=== PATIENT | male | born 1970 | race Caucasian/White ===

== ENCOUNTER 2022-01-16 05:51 | Observation (INO) | payer OTHER ==
[2022-01-12 09:56] LABS: BASOPHILS % 0.6 % (0.0-1.0); EOSINOPHILS # (AUTO) 0.1 (0.0-0.4); EOSINOPHILS % 1.5 % (0.0-6.0); HEMATOCRIT 45.5 % (38.2-49.6); HEMOGLOBIN 15.6 g/dL (14.0-18.0); LYMPHOCYTES # (AUTO) 1.5 (1.0-3.2); LYMPHOCYTES % 21.7 % (18.0-39.1); MEAN CORPUSCULAR HEMOGLOBIN 31.5 pg (28-32); MEAN CORPUSCULAR HGB CONC 34.3 g/dL (31-35); MEAN CORPUSCULAR VOLUME 91.9 fL (81-99); MONOCYTES # (AUTO) 0.6 (0.2-0.8); MONOCYTES % 8.8 % (4.4-11.3); NEUTROPHILS # (AUTO) 4.6 (2.1-6.9); NEUTROPHILS % 67.1 % (38.7-80.0); PLATELET COUNT 218 x10e3/uL (140-360); RED BLOOD COUNT 4.95 x10e6/uL (4.3-5.7); RED CELL DISTRIBUTION WIDTH 11.6 % (11.7-14.4)
[~2022-01-16] VITALS: Ht 195.6 cm; Wt 88.5 kg
[~2022-01-16 05:51] MED LIST: ADDERALL 30 MG30 MG; TESTOSTERONE IM; TESTOSTERONE5 GM INJ
[2022-01-16] MEDS ORDERED: SODIUM CHLORIDE 0.9% 50ML 100 ML ONE (06:00)
[2022-01-16] MEDS ORDERED: LACTATED RINGER'S 1,000 ML INJ SCH (11:00)
[2022-01-16] MEDS ORDERED: MEPERIDINE HCL 50 MG TAB PO PRN (11:00)
[2022-01-16] MEDS: ONDANSETRON HCL INJ 2MG/ML 2ML 2 MG/ML VIAL ONE ×2 (11:10→11:19)
[2022-01-16] MEDS: FENTANYL CITRATE/PF 100MCG/2 ML INJ ONE ×2 (11:10→11:19)
[2022-01-16 12:12] VITALS: BP 124/78
[2022-01-16 12:13] VITALS: BP 124/78
[2022-01-16 12:18] VITALS: BP 124/78
[2022-01-16] MEDS: ONDANSETRON HCL INJ 2MG/ML 2ML 2 MG/ML VIAL IV PRN ×2 (12:50→20:50)
[2022-01-16] MEDS ORDERED: POVIDONE IODINE 0.05% 0.05 % ML PO ONE (12:54)
[2022-01-16] MEDS ORDERED: KETOROLAC TROMETHAMINE 30 MG/ML VIAL ONE (12:54)
[2022-01-16] MEDS ORDERED: DEXAMETHASONE SOD PHOS INJ 4 MG/ML SDV ONE (12:54)
[2022-01-16] MEDS ORDERED: SEVOFLURANE INHAL SOLN 250 ML PEN BTL ONE (12:54)
[2022-01-16] MEDS ORDERED: PROPOFOL IV EMULSION 10 MG/ML 20 ML VIAL ONE (12:54)
[2022-01-16] MEDS ORDERED: LIDOCAINE HCL 2% LOCAL INJ 5 ML SDV VIAL INJ ONE (12:54)
[2022-01-16] MEDS ORDERED: GLYCOPYRROLATE INJ 0.2 MG/ML VIAL ONE (12:54)
[2022-01-16] MEDS ORDERED: ONDANSETRON HCL INJ 2MG/ML 2ML 2 MG/ML VIAL ONE (12:54)
[2022-01-16] MEDS ORDERED: NEOSTIGMINE 1 MG/ML 10ML VIAL ONE (12:54)
[2022-01-16] MEDS ORDERED: ROPIVACAINE 0.5% 5 MG/ML 30 ML SDV ONE (13:03)
[2022-01-16] MEDS ORDERED: MIDAZOLAM HCL 2 MG/2 ML VIAL ONE (13:11)
[2022-01-16] MEDS ORDERED: FENTANYL CITRATE/PF 100MCG/2 ML INJ ONE (13:11)
[2022-01-16] MEDS ORDERED: Morphine 2mg Syringe 2 MG/ML SYR IV PRN (15:15)
[2022-01-16] MEDS ORDERED: PROMETHAZINE 12.5MG/ NACL 0.9% 12.5 MG/50 ML BAG IV ONE (15:30)
[2022-01-16] MEDS: OMEPRAZOLE 20 MG CAP PO SCH (15:43)
[2022-01-16 16:00] VITALS: BP 134/89
[2022-01-16] MEDS ORDERED: PROMETHAZINE 12.5MG/ NACL 0.9% 50 ML IV ONE (16:00)
[2022-01-16] MEDS: OXYCODONE/ACETAMINOPHEN 5-325 1 EACH TABLET PO PRN ×2 (17:41→21:47)
[2022-01-16] MEDS: HYDROMORPHONE 1MG/1ML INJ IV PRN (19:30)
[2022-01-16 20:00] VITALS: BP 135/91
[2022-01-16 21:00] VITALS: BP 134/89
[2022-01-17] VITALS (8 sets, daily range): BP systolic 123–149; BP diastolic 84–99
[2022-01-17] MEDS: HYDROMORPHONE 1MG/1ML INJ IV PRN ×6 (00:01→21:36)
[2022-01-17] MEDS: OXYCODONE/ACETAMINOPHEN 5-325 1 EACH TABLET PO PRN ×5 (02:47→19:46)
[2022-01-17] MEDS: ONDANSETRON HCL INJ 2MG/ML 2ML 2 MG/ML VIAL IV PRN ×3 (07:05→21:36)
[2022-01-17] MEDS: OMEPRAZOLE 20 MG CAP PO SCH (08:20)
[2022-01-18] VITALS: BP 112/83
[2022-01-18] MEDS: ONDANSETRON HCL INJ 2MG/ML 2ML 2 MG/ML VIAL IV PRN ×3 (01:46→10:51)
[2022-01-18] MEDS: HYDROMORPHONE 1MG/1ML INJ IV PRN ×3 (01:46→10:51)
[2022-01-18] MEDS: OXYCODONE/ACETAMINOPHEN 5-325 1 EACH TABLET PO PRN ×3 (04:39→13:46)
[2022-01-18 05:17] VITALS: BP 142/91
[2022-01-18 08:38] VITALS: BP 124/83
[2022-01-18] MEDS: OMEPRAZOLE 20 MG CAP PO SCH (09:00)
[2022-01-18 09:10] VITALS: BP 124/83
[2022-01-18 12:12] VITALS: BP 116/93
[2022-01-18 12:13] VITALS: BP 112/82
== END 2022-01-18 03:35 | disposition home or self-care (01) ==
LOC: OR 05:51 → PACU V 10:37 → MED/SURG 11:41
PROVIDERS: ADMIT Orthopaedic Surgery; ATTEND Orthopaedic Surgery
DX: M19.012 Primary osteoarthritis, left shoulder (principal); M24.012 Loose body in left shoulder; F41.9 Anxiety disorder, unspecified; E03.9 Hypothyroidism, unspecified; F43.10 Post-traumatic stress disorder, unspecified; M17.0 Bilateral primary osteoarthritis of knee; Z01.810 Encounter for preprocedural cardiovascular examination; Z01.812 Encounter for preprocedural laboratory examination; Z20.822 Contact with and (suspected) exposure to COVID-19; Z98.84 Bariatric surgery status; Z83.3 Family history of diabetes mellitus; Z87.891 Personal history of nicotine dependence; Z88.5 Allergy status to narcotic agent; Z88.8 Allergy status to other drugs, medicaments and biological substances
CPT/HCPCS: 23470; 36415; 85025; 93005; 94799 ×2; C1713; G0378 ×3; J0690 ×2; J1100; J1170 ×3; J1885; J2001; J2250; J2270; J2405 ×3; J2550; J2704; J2710; J2795; J3010; J7050 ×2; J7121; U0002